=== PATIENT | male | born 1950 | race Caucasian/White ===

== ENCOUNTER 2020-11-12 07:14 | Day surgery (SDC) | payer MEDICARE ==
[2020-11-08 09:38] VITALS: BP 98/60
[2020-11-08 11:47] LABS: BASOPHILS % (AUTO) 0.7 % (0.0-5.0); EOSINOPHILS % (AUTO) 6.4 % (0.0-8.0); HEMATOCRIT 43.9 % (42-54); LYMPHOCYTES % (AUTO) 15.9 % (21.0-51.0); MEAN CORPUSCULAR HEMOGLOBIN 31.9 pg (27.0-33.0); MEAN CORPUSCULAR HGB CONC 33.7 g/dL (32.0-36.0); MEAN CORPUSCULAR VOLUME 94.6 fL (79-99); MONOCYTES % (AUTO) 9.7 % (3.0-13.0); NEUTROPHILS % (AUTO) 66.6 % (40.0-77.0); PLATELET COUNT (AUTO) 179 K/uL (130-400); RED BLOOD CELL COUNT(AUTO) 4.64 MIL/uL (4.50-6.20); RED CELL DISTRIBUTION WIDTH 14.2 % (11.0-15.5); WHITE BLOOD COUNT (AUTO) 6.7 K/uL (4.8-10.8)
[2020-11-08 12:02] LABS: CREATININE 1.2 mg/dL (0.5-1.5); POTASSIUM 4.1 mmol/L (3.5-5.1)
[2020-11-12] VITALS (18 sets, daily range): BP systolic 87–109; BP diastolic 52–65
[~2020-11-12] VITALS: Ht 180.3 cm; Wt 101.3 kg
[~2020-11-12 07:14] MED LIST: APIX5TAB PO; FENTANYL CITRATE PF 50 MCG/1 ML 2ML VIAL IVP SCH; FLEC50TA3 PO; FURO20TA4 PO; METO25TA6 PO; MIDAZOLAM HCL 1 MG/ML 2ML VIAL IVPB SCH; PANT40TA54 PO; SPIR50TA5 PO
[2020-11-12] MEDS ORDERED: 0.9%NACL 1000ML 1,000 ML IV ONE (07:44)
[2020-11-12] MEDS ORDERED: FLUMAZENIL 0.1MG/1ML 5ML VIAL IV ONE (09:07)
[2020-11-12] MEDS ORDERED: NALOXONE HCL 0.4 MG/1 ML ML ONE (09:08)
== END 2020-11-12 14:30 | disposition home or self-care (01) ==
LOC: DAH 07:14
PROVIDERS: ATTEND Internal Medicine Cardiovascular Disease
DX: I48.19 Other persistent atrial fibrillation (principal); I48.92 Unspecified atrial flutter; K70.31 Alcoholic cirrhosis of liver with ascites; E78.5 Hyperlipidemia, unspecified; Z98.890 Other specified postprocedural states; Z79.899 Other long term (current) drug therapy; Z79.82 Long term (current) use of aspirin; Z79.01 Long term (current) use of anticoagulants
CPT/HCPCS: 36415; 80048; 85025; 92960; 93005; 96374; 96375; 99152; A4606; J2250; J2310; J3010; J3490; J7030

== ENCOUNTER → 2022-09-29 | Outpatient (CLI) | payer MEDICARE ==
[~2022-09-29] MED LIST changes: -FENTANYL CITRATE PF 50 MCG/1 ML 2ML VIAL IVP SCH; -MIDAZOLAM HCL 1 MG/ML 2ML VIAL IVPB SCH
== END | disposition home or self-care (01) ==
LOC: RAH 08:00
PROVIDERS: ATTEND Internal Medicine Gastroenterology
DX: K70.31 Alcoholic cirrhosis of liver with ascites (principal); I10 Essential (primary) hypertension
CPT/HCPCS: 76700; 93975

== ENCOUNTER → 2023-06-16 | Outpatient (CLI) | payer MEDICARE ==
[2023-06-16 12:16] LABS: CREATININE 1.4 mg/dL (0.5-1.3)
== END | disposition home or self-care (01) ==
LOC: LAB 11:03
PROVIDERS: ATTEND Internal Medicine Cardiovascular Disease
DX: J84.10 Pulmonary fibrosis, unspecified (principal)
CPT/HCPCS: 36415; 82565; 84520

== ENCOUNTER → 2023-06-18 | Outpatient (CLI) | payer MEDICARE | END | disposition home or self-care (01) | LOC: RAH 13:52 | PROVIDERS: ATTEND Internal Medicine Cardiovascular Disease | DX: J84.10 Pulmonary fibrosis, unspecified (principal); I25.10 Atherosclerotic heart disease of native coronary artery without angina pectoris; M47.815 Spondylosis without myelopathy or radiculopathy, thoracolumbar region; J47.9 Bronchiectasis, uncomplicated; Z90.49 Acquired absence of other specified parts of digestive tract | CPT/HCPCS: 71250 ==

== ENCOUNTER 2024-03-23 06:23 | Day surgery (SDC) | payer MEDICARE ==
[2024-03-23] VITALS (11 sets, daily range): BP systolic 97–127; BP diastolic 47–83; PULSE 61–78; RESP 14–18; TEMP 97.2–97.8
[~2024-03-23] VITALS: Ht 180.3 cm; Wt 103.0 kg
[~2024-03-23 06:23] MED LIST changes: +BUDE10.7 IH
[2024-03-23] MEDS: 0.9%NACL 1000ML 1,000 ML IV ONE (07:57)
[2024-03-23] MEDS ORDERED: proPOFol 10 MG/ML 20ML VIAL IV ONE ×2 (09:11→09:19)
== END 2024-03-23 10:35 | disposition home or self-care (01) ==
LOC: ENDO 06:23 → DAH 06:23 → ENDO 10:35
PROVIDERS: ATTEND Internal Medicine Gastroenterology
DX: I85.00 Esophageal varices without bleeding (principal); K29.50 Unspecified chronic gastritis without bleeding; K76.6 Portal hypertension; K70.31 Alcoholic cirrhosis of liver with ascites; D64.9 Anemia, unspecified; K44.9 Diaphragmatic hernia without obstruction or gangrene; E78.5 Hyperlipidemia, unspecified; I25.10 Atherosclerotic heart disease of native coronary artery without angina pectoris; I73.9 Peripheral vascular disease, unspecified; N18.9 Chronic kidney disease, unspecified; I12.9 Hypertensive chronic kidney disease with stage 1 through stage 4 chronic kidney disease, or unspecified chronic kidney disease; M19.90 Unspecified osteoarthritis, unspecified site; I48.91 Unspecified atrial fibrillation; Z79.899 Other long term (current) drug therapy; Z98.890 Other specified postprocedural states; Z90.49 Acquired absence of other specified parts of digestive tract
CPT/HCPCS: 43239; J7030 ×2; J2704 ×2; A4620; A4215; A4223; A7002; A4222; A4221; A4663; A4606; J3490

== ENCOUNTER 2025-03-02 08:27 | Day surgery (SDC) | payer MEDICARE ==
[2025-03-02] VITALS (8 sets, daily range): BP systolic 88–117; BP diastolic 50–65; PULSE 54–59; RESP 16–19; TEMP 97–97.7
[~2025-03-02] VITALS: Ht 180.3 cm; Wt 102.1 kg
[2025-03-02] MEDS ORDERED: BUDE10.7 IH (09:48)
[2025-03-02] MEDS: 0.9%NACL 1000ML 1,000 ML IV ONE (09:55)
[2025-03-02] MEDS ORDERED: LIDOCAINE PF 100MG/5ML (2%) SYRINGE 5ML ONE (13:01)
== END 2025-03-02 14:15 | disposition home or self-care (01) ==
LOC: DAH 08:27 → ENDO 08:27
PROVIDERS: ATTEND Internal Medicine
DX: K70.31 Alcoholic cirrhosis of liver with ascites (principal); I85.10 Secondary esophageal varices without bleeding; K31.89 Other diseases of stomach and duodenum; K44.9 Diaphragmatic hernia without obstruction or gangrene; R06.02 Shortness of breath; I12.9 Hypertensive chronic kidney disease with stage 1 through stage 4 chronic kidney disease, or unspecified chronic kidney disease; K57.30 Diverticulosis of large intestine without perforation or abscess without bleeding; K76.6 Portal hypertension; I48.91 Unspecified atrial fibrillation; K42.0 Umbilical hernia with obstruction, without gangrene; E78.5 Hyperlipidemia, unspecified; I25.10 Atherosclerotic heart disease of native coronary artery without angina pectoris; K21.9 Gastro-esophageal reflux disease without esophagitis; I73.9 Peripheral vascular disease, unspecified; N18.9 Chronic kidney disease, unspecified; M19.90 Unspecified osteoarthritis, unspecified site; Z90.49 Acquired absence of other specified parts of digestive tract; Z79.01 Long term (current) use of anticoagulants; Z98.890 Other specified postprocedural states; Z79.899 Other long term (current) drug therapy
CPT/HCPCS: 43235; J7030; J2003; J2704; A4620; A4215; J3490